=== PATIENT | female | born 1945 | race Caucasian/White ===

== ENCOUNTER 2016-12-21 14:03 | Emergency (ER) | payer OTHER ==
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
[2016-12-21] MEDS ORDERED: PRILOSEC (14:18)
[2016-12-21] MEDS ORDERED: FLECAINIDE ACE100 MG (14:18)
[2016-12-21] MEDS ORDERED: GABAPENTIN300 M2 (14:18)
[2016-12-21] MEDS ORDERED: GLIMEPIRIDE2 MG (14:19)
[2016-12-21] MEDS ORDERED: LISINOPRIL20 MG (14:19)
[2016-12-21] MEDS ORDERED: NORVASC (14:19)
[2016-12-21] MEDS ORDERED: LEVOXYL112 MC1 (14:19)
[2016-12-21] MEDS ORDERED: PRAVASTATIN SOD40 MG (14:19)
== END 2016-12-21 15:09 | disposition home or self-care (01) ==
LOC: SED 14:03
DX: S43.402A Unspecified sprain of left shoulder joint, initial encounter (principal); S13.4XXA Sprain of ligaments of cervical spine, initial encounter; S73.102A Unspecified sprain of left hip, initial encounter; J44.9 Chronic obstructive pulmonary disease, unspecified; I48.91 Unspecified atrial fibrillation; V89.2XXA Person injured in unspecified motor-vehicle accident, traffic, initial encounter; Y92.410 Unspecified street and highway as the place of occurrence of the external cause
CPT/HCPCS: 73030; 73502; 99284